=== PATIENT | male | born 1980 | race Two or more races ===

== ENCOUNTER 2023-09-09 19:00 | Emergency (ER) | payer OTHER ==
[~2023-09-09] VITALS: Ht 190.5 cm; Wt 158.0 kg
[2023-09-09 21:15] LABS: Basophils # (auto) 0.1 10 ^3/uL (0-0.2); Basophils % (auto) 1.2 % (0.0-2.0); Eosinophils # (auto) 0.6 10 ^3/uL (0-0.8); Eosinophils % (auto) 6.6 % (0.0-7.0); Hematocrit 45.8 % (41.0-53.0); Hemoglobin 16.1 g/dL (13.5-17.5); Lymphocytes # (auto) 2.6 10 ^3/uL (0.4-5.4); Lymphocytes % (auto) 26.3 % (10.0-50.0); Mean Corpuscular Hemoglobin 30.3 pg (28.0-32.0); Mean Corpuscular Hgb Conc. 35.2 g/dL (32.0-36.0); Mean Corpuscular Volume 85.9 fL (80.0-100.0); Monocytes # (auto) 0.8 10 ^3/uL (0-1.3); Monocytes % (auto) 8.4 % (0.0-12.0); Neutrophils # (auto) 5.6 10 ^3/uL (1.6-8.6); Neutrophils % (auto) 57.5 % (37.0-80.0); Nucleated Red Blood Cells % 0.5 %; Red Blood Cells 5.33 10^6/uL (4.5-5.90); Red Cell Distribution Width 13.7 % (11.8-14.3); White Blood Cell 9.7 10^3/uL (4.4-10.8)
[2023-09-09] MEDS: ONDANSETRON HCL 4 MG/2 ML VIAL IV ONE (21:19)
[2023-09-09] MEDS: PANTOPRAZOLE 40 MG/10 ML VIAL INJ IV ONE (21:19)
[2023-09-09] MEDS: MORPHINE SULFATE 4 MG/ML SYR/VIAL IV ONE (21:19)
[2023-09-09 21:20] VITALS: BP 181/116; PULSE 74; RESP 16; TEMP 97.9; O2SAT 96
[2023-09-09] MEDS: SODIUM CHLORIDE 0.9% 1,000 ML IV ONE (21:20)
[2023-09-09] MEDS: IOHEXOL 300 MG/ML 100ML BOTTLE IJ ONE (21:32)
[2023-09-09 21:42] LABS: Alanine Aminotransferase 37 U/L (7-40); Albumin 4.2 g/dL (3.2-4.8); Alkaline Phosphatase 108 U/L (46-116); Anion Gap 4 (5-15); Aspartate Aminotransferase 39 U/L (13-40); BUN/Creatinine Ratio 13.1 (10.0-20.0); Bilirubin, Total 0.9 mg/dL (0.2-1.0); Blood Urea Nitrogen 11 mg/dL (9-23); Calcium 9.3 mg/dL (8.7-10.4); Carbon Dioxide 29 mmol/L (20-30); Chloride 108 mmol/L (98-107); Glucose 96 mg/dL (74-106); Lipase 60 U/L (12-53); Potassium 4.2 mmol/L (3.5-5.1); Sodium 141 mmol/L (136-145); Total Protein 7.3 g/dL (5.7-8.2)
== END 2023-09-09 23:48 | disposition home or self-care (01) ==
LOC: ER 19:00
DX: R10.12 Left upper quadrant pain (principal); R11.0 Nausea; R20.8 Other disturbances of skin sensation; I10 Essential (primary) hypertension; Z98.890 Other specified postprocedural states
CPT/HCPCS: 36415; 74177; 80053; 83690; 85025; 96361; 96374; 96375; 99285; J2405; J2470; J7030; Q9967